=== PATIENT | female | born 1955 | race African-American/Black ===

== ENCOUNTER 2021-05-27 18:00 | Inpatient (IN) ==
[2021-05-27] MEDS ORDERED: ONDANSETRON 4 MG/2 ML VIAL IV STA (19:00)
[2021-05-27] MEDS ORDERED: cefTRIAXone 1,000 MG in SODIUM CHLORIDE 0.9% 100 ML IV STA (19:00)
[2021-05-27 20:11] LABS: Basophils % 0.3 % (0.0-0.8); Eosinophils # 0.1 10*3/uL (0.0-0.87); Eosinophils % 0.8 % (0.00-10.9); Hematocrit 30.3 VOL% (35.7-47.0); Hemoglobin 8.1 GM/DL (12.0-16.0); Immature Granulocytes % 1.2 %; Immature Granulocytes Absolute 0.12 #; Lymphocytes % 9.8 % (21.3-54.2); Mean Corpuscular HGB Conc 26.7 GM/DL (32-36); Mean Corpuscular Volume 84.6 FL (87-102); Mean Platelet Volume 10.9 FL (9.6-12.0); Monocytes % 7.1 % (1.7-12.7); NRBC # 0.02 10*3/uL; Neutrophils % 80.8 % (38.7-73.9); Platelet Count 215 T/CUMM (130-400); Red Blood Count 3.58 MC/CUMM (3.8-5.5); Red Cell Distribution Width 18.5 % (9.3-17.3); White Blood Count 9.8 T/CUMM (4-12)
[2021-05-27 20:15] LABS: Alanine Aminotransferase 14 U/L (13-56); Albumin 3.2 G/DL (3.4-5.0); Alkaline Phosphatase 62 U/L (45-117); Amylase 33 U/L (25-115); Aspartate Amino Transferase 12 U/L (0-37); Blood Urea Nitrogen 51 MG/DL (7-18); Calcium 9.9 MG/DL (8.5-10.1); Carbon Dioxide 31 MMOL/L (21-32); Estimated Glom Filtration Rate 84 ML/MIN; Glucose 170 MG/DL (74-106); Potassium 5.1 MMOL/L (3.5-5.1); Sodium 136 MMOL/L (136-145); Total Protein 7.9 G/DL (6.4-8.2)
[2021-05-27 20:45] LABS: Bacteria,Urine Occasional /HPF (Few); Bilirubin,Urine Negative (Negative); Blood, Urine Negative (Negative); Glucose,Urine (UA) Negative (Negative); Hyaline Casts,Urine 21 /LPF (0-3); Ketones,Urine Negative (Negative); Mucus,Urine Occasional /LPF (Occasional); Nitrite,Urine Negative (Negative); Protein,Urine Negative; RBC,Urine 2 /HPF (0-4); Squamous Epithelial Cell,Urine Occasional /HPF (0-10); Urine Appearance Slightly Hazy (Clear); Urine Color Yellow (Yellow); Urine Specific Gravity 1.011 (1.001-1.035); Urine Urobilinogen < 2.0 EU/DL (<2.0)
[2021-05-27] MEDS ORDERED: MEROPENEM 1,000 MG in SODIUM CHLORIDE 0.9% 100 ML IV ONE (21:01)
[2021-05-27] MEDS ORDERED: PIPERACILLIN/TAZOBACTAM 3,375 MG in SODIUM CHLORIDE 0.9% 100 ML IV STA (21:03)
[2021-05-27] MEDS ORDERED: guaiFENesin/DM ER 600-30 MG TABLET PO PRN (22:04)
[2021-05-27] MEDS ORDERED: ONDANSETRON 4 MG/2 ML VIAL IV PRN (22:04)
[2021-05-27] MEDS ORDERED: NICOTINE 21 MG/24 HR PATCH TRANSDERM PRN (22:04)
[2021-05-27] MEDS ORDERED: ZALEPLON 5 MG CAPSULE PO PRN (22:04)
[2021-05-27] MEDS ORDERED: DEXTROSE 10% 250 ML BAG IV PRN (22:04)
[2021-05-27] MEDS ORDERED: ACETAMINOPHEN 325 MG TABLET PO PRN (22:04)
[2021-05-27] MEDS ORDERED: DOCUSATE SODIUM 100 MG CAPSULE PO PRN (22:04)
[2021-05-27] MEDS ORDERED: diphenhydrAMINE CAP 25 MG CAPSULE PO PRN (22:04)
[2021-05-27] MEDS ORDERED: DEXTROSE 50% 25 GM/50 ML VIAL IV PRN (22:04)
[2021-05-27] MEDS ORDERED: GLUCAGON 1 MG VIAL IM PRN ×2 (22:04)
[2021-05-27] MEDS ORDERED: LEVOFLOXACIN INJ 750 MG/150 ML PREMIX IV SCH (22:30)
[2021-05-27 23:11] LABS: Anisocytosis 1+; Hypochromia 1+; Polychromasia 1+
[2021-05-27 23:13] LABS: Platelet Estimate Adequate
[2021-05-27] MEDS: FUROSEMIDE 40 MG/4 ML VIAL IV SCH (23:24)
[2021-05-27] MEDS: VANCOMYCIN INJ 2,000 MG in SODIUM CHLORIDE 0.9% 500 ML IV SCH (23:26)
[2021-05-27 23:28] LABS: ABG Base Excess -1.8 MMOL/L (-2.5-2.5); ABG HCO3 22.7 MMOL/L (20-26); ABG Oxygen Saturation 78.6 % (95-100); ABG PO2 65.7 MM HG (80-95); ABG TCO2 35.9 MMOL/L (23-27); Allen Test Positive
[2021-05-27 23:33] LABS: ABG PH 6.941 (7.35-7.45)
[2021-05-27] MEDS ORDERED: ENOXAPARIN 100 MG/ML SYRINGE SUBCUT STA (23:56)
[2021-05-27] MEDS ORDERED: ENOXAPARIN 120 MG/0.8 ML SYRINGE SUBCUT STA (23:58)
[2021-05-28] MEDS: ALBUTEROL/IPRATROPIUM 3 ML NEB RESP TX SCH ×4 (00:10→19:45)
[2021-05-28] MEDS ORDERED: ROCURONIUM 100 MG/10 ML VIAL IV STA (01:10)
[2021-05-28] MEDS ORDERED: ETOMIDATE 20 MG/10 ML VIAL IV STA (01:11)
[2021-05-28] MEDS: hydrALAZINE 20 MG/1 ML VIAL IV PRN ×3 (01:49→13:24)
[2021-05-28 02:16] LABS: ABG Base Excess 1.8 MMOL/L (-2.5-2.5); ABG Oxygen Saturation 97.1 % (95-100); ABG PO2 89.6 MM HG (80-95); ABG TCO2 30.3 MMOL/L (23-27)
[2021-05-28 02:20] LABS: ABG PCO2 82.4 MM HG (35-48); ABG PH 7.196 (7.35-7.45)
[2021-05-28 03:58] VITALS: BP 166/89
[2021-05-28] MEDS: PIPERACILLIN/TAZOBACTAM 3,375 MG in SODIUM CHLORIDE 0.9% 100 ML IV SCH ×3 (05:48→19:35)
[2021-05-28 06:07] LABS: Basophils % 0.3 % (0.0-0.8); NRBC # 0.03 10*3/uL; Red Cell Distribution Width 18.3 % (9.3-17.3)
[2021-05-28 06:32] LABS: Eosinophils % 0.1 % (0.00-10.9); Hemoglobin 8.1 GM/DL (12.0-16.0); Immature Granulocytes % 1.1 %; Immature Granulocytes Absolute 0.08 #; Lymphocytes # 0.7 10*3/uL (1.4-4.0); Lymphocytes % 9.6 % (21.3-54.2); Mean Corpuscular HGB Conc 26.9 GM/DL (32-36); Mean Corpuscular Volume 83.1 FL (87-102); Monocytes % 4.6 % (1.7-12.7); Neutrophils % 84.3 % (38.7-73.9); Platelet Count 222 T/CUMM (130-400); Red Blood Count 3.62 MC/CUMM (3.8-5.5); White Blood Count 7.1 T/CUMM (4-12)
[2021-05-28 06:38] LABS: Hematocrit 30.1 VOL% (35.7-47.0)
[2021-05-28 07:05] LABS: Calcium 10.1 MG/DL (8.5-10.1); Osmolality,Calculated 291.8 MOS/KG (273-304); Potassium 5.1 MMOL/L (3.5-5.1)
[2021-05-28] MEDS: LOSARTAN 50 MG TABLET PO SCH (08:30)
[2021-05-28] MEDS: DOCUSATE SODIUM 100 MG CAPSULE PO SCH ×2 (08:30→20:01)
[2021-05-28] MEDS: GABAPENTIN 300 MG CAPSULE PO SCH ×3 (08:30→20:03)
[2021-05-28] MEDS: amLODIPine 5 MG TABLET PO SCH (08:30)
[2021-05-28] MEDS: PANTOPRAZOLE 40 MG VIAL IV SCH (08:30)
[2021-05-28] MEDS: INSULIN NPH 100 UNIT/ML SUBCUT SCH ×2 (08:30→20:54)
[2021-05-28] MEDS ORDERED: PANTOPRAZOLE 40 MG TABLET PO SCH (09:00)
[2021-05-28] MEDS ORDERED: HEPARIN 5,000 UNIT/1 ML VIAL SUBCUT SCH (09:00)
[2021-05-28] MEDS: methylPREDNISolone SOD SUC 40 MG/1 ML VIAL IV SCH ×2 (09:56→20:02)
[2021-05-28] MEDS: FUROSEMIDE 40 MG/4 ML VIAL IV SCH ×2 (10:39→22:59)
[2021-05-28] MEDS: VANCOMYCIN INJ 2,000 MG in SODIUM CHLORIDE 0.9% 500 ML IV SCH ×2 (10:59→23:23)
[2021-05-28] MEDS: INSULIN LISPRO 100 UNIT/ML SUBCUT SCH ×4 (11:06→21:40)
[2021-05-28] MEDS: APIXABAN 5 MG TABLET PER TUBE SCH ×2 (11:23→20:01)
[2021-05-28] MEDS: ATORVASTATIN 10 MG TABLET PO SCH (20:06)
[2021-05-29] MEDS: hydrALAZINE 20 MG/1 ML VIAL IV PRN ×2 (00:29→11:12)
[2021-05-29] MEDS: ALBUTEROL/IPRATROPIUM 3 ML NEB RESP TX SCH ×4 (01:04→19:01)
[2021-05-29] MEDS: PIPERACILLIN/TAZOBACTAM 3,375 MG in SODIUM CHLORIDE 0.9% 100 ML IV SCH ×3 (03:32→20:04)
[2021-05-29 03:33] LABS: ABG Base Excess 8.8 MMOL/L (-2.5-2.5); ABG HCO3 33.4 MMOL/L (20-26); ABG Oxygen Saturation 99.4 % (95-100); ABG PO2 214.5 MM HG (80-95); ABG TCO2 34.9 MMOL/L (23-27)
[2021-05-29 05:03] LABS: Albumin 2.3 G/DL (3.4-5.0); Bilirubin,Total 0.8 MG/DL (0.20-1.00); Osmolality,Calculated 303.1 MOS/KG (273-304); Potassium 4.4 MMOL/L (3.5-5.1); Total Protein 6.3 G/DL (6.4-8.2)
[2021-05-29 05:11] LABS: Hemoglobin 8.3 GM/DL (12.0-16.0); Immature Granulocytes % 0.6 %; Immature Granulocytes Absolute 0.03 #; Lymphocytes # 0.4 10*3/uL (1.4-4.0); Lymphocytes % 7.5 % (21.3-54.2); Mean Corpuscular HGB Conc 28.5 GM/DL (32-36); Mean Platelet Volume 11.2 FL (9.6-12.0); Monocytes % 2.7 % (1.7-12.7); Neutrophils % 89.2 % (38.7-73.9); Platelet Count 203 T/CUMM (130-400); Red Blood Count 3.73 MC/CUMM (3.8-5.5); Red Cell Distribution Width 18.4 % (9.3-17.3); White Blood Count 5.1 T/CUMM (4-12)
[2021-05-29 05:16] LABS: Hematocrit 29.1 VOL% (35.7-47.0)
[2021-05-29 05:33] LABS: Hypochromia 2+; Microcytosis 1+; Tear Drop Cells Slight
[2021-05-29 05:34] LABS: Ovalocytes Few; Platelet Estimate Normal
[2021-05-29] MEDS: methylPREDNISolone SOD SUC 40 MG/1 ML VIAL IV SCH ×2 (08:56→20:40)
[2021-05-29] MEDS: PANTOPRAZOLE 40 MG VIAL IV SCH (09:00)
[2021-05-29] MEDS: GABAPENTIN 300 MG CAPSULE PO SCH ×3 (09:04→20:40)
[2021-05-29] MEDS: APIXABAN 5 MG TABLET PER TUBE SCH ×2 (09:04→20:40)
[2021-05-29] MEDS: DOCUSATE SODIUM 100 MG CAPSULE PO SCH ×2 (09:05→20:40)
[2021-05-29] MEDS: amLODIPine 5 MG TABLET PO SCH (09:05)
[2021-05-29] MEDS: LOSARTAN 50 MG TABLET PO SCH (09:05)
[2021-05-29] MEDS: INSULIN NPH 100 UNIT/ML SUBCUT SCH ×2 (09:06→20:55)
[2021-05-29] MEDS: INSULIN LISPRO 100 UNIT/ML SUBCUT SCH ×3 (09:07→16:28)
[2021-05-29] MEDS: FUROSEMIDE 40 MG/4 ML VIAL IV SCH ×2 (11:03→22:23)
[2021-05-29] MEDS: VANCOMYCIN INJ 2,000 MG in SODIUM CHLORIDE 0.9% 500 ML IV SCH ×2 (12:25→23:02)
[2021-05-29] MEDS: ATORVASTATIN 10 MG TABLET PO SCH (20:40)
[2021-05-30] MEDS: ALBUTEROL/IPRATROPIUM 3 ML NEB RESP TX SCH ×4 (00:05→19:58)
[2021-05-30] MEDS: hydrALAZINE 20 MG/1 ML VIAL IV PRN ×3 (00:38→23:23)
[2021-05-30] MEDS: PIPERACILLIN/TAZOBACTAM 3,375 MG in SODIUM CHLORIDE 0.9% 100 ML IV SCH ×3 (04:00→20:38)
[2021-05-30 04:47] LABS: Calcium 9.2 MG/DL (8.5-10.1); Osmolality,Calculated 304.3 MOS/KG (273-304); Potassium 4.3 MMOL/L (3.5-5.1)
[2021-05-30 05:04] LABS: Hemoglobin 8.5 GM/DL (12.0-16.0); Immature Granulocytes % 0.7 %; Immature Granulocytes Absolute 0.03 #; Lymphocytes # 0.4 10*3/uL (1.4-4.0); Lymphocytes % 9.5 % (21.3-54.2); Mean Corpuscular HGB Conc 28.4 GM/DL (32-36); Mean Corpuscular Volume 77.3 FL (87-102); Mean Platelet Volume 11.3 FL (9.6-12.0); Monocytes % 7.8 % (1.7-12.7); NRBC # 0.03 10*3/uL; Platelet Count 189 T/CUMM (130-400); Red Blood Count 3.87 MC/CUMM (3.8-5.5); Red Cell Distribution Width 18.3 % (9.3-17.3); White Blood Count 4.6 T/CUMM (4-12)
[2021-05-30 05:06] LABS: Hematocrit 29.9 VOL% (35.7-47.0)
[2021-05-30] MEDS: INSULIN LISPRO 100 UNIT/ML SUBCUT SCH ×5 (05:52→23:25)
[2021-05-30 08:34] LABS: ABG Base Excess 11.9 MMOL/L (-2.5-2.5); ABG HCO3 35.4 MMOL/L (20-26); ABG Oxygen Saturation 94.1 % (95-100); ABG PCO2 41.7 MM HG (35-48); ABG PH 7.547 (7.35-7.45); ABG PO2 67.2 MM HG (80-95); ABG TCO2 36.7 MMOL/L (23-27)
[2021-05-30] MEDS: amLODIPine 5 MG TABLET PO SCH (09:05)
[2021-05-30] MEDS: APIXABAN 5 MG TABLET PER TUBE SCH ×2 (09:05→20:39)
[2021-05-30] MEDS: LOSARTAN 50 MG TABLET PO SCH (09:05)
[2021-05-30] MEDS: INSULIN NPH 100 UNIT/ML SUBCUT SCH ×2 (09:05→20:40)
[2021-05-30] MEDS: DOCUSATE SODIUM 100 MG CAPSULE PO SCH ×2 (09:05→20:40)
[2021-05-30] MEDS: GABAPENTIN 300 MG CAPSULE PO SCH ×3 (09:05→20:39)
[2021-05-30] MEDS: PANTOPRAZOLE 40 MG VIAL IV SCH (09:05)
[2021-05-30] MEDS: methylPREDNISolone SOD SUC 40 MG/1 ML VIAL IV SCH ×2 (09:05→20:39)
[2021-05-30] MEDS: ATORVASTATIN 10 MG TABLET PO SCH (20:39)
[2021-05-30] MEDS: VANCOMYCIN INJ 2,000 MG in SODIUM CHLORIDE 0.9% 500 ML IV SCH (23:24)
[2021-05-31] MEDS: ALBUTEROL/IPRATROPIUM 3 ML NEB RESP TX SCH ×4 (00:24→19:11)
[2021-05-31] MEDS: PIPERACILLIN/TAZOBACTAM 3,375 MG in SODIUM CHLORIDE 0.9% 100 ML IV SCH ×3 (04:05→20:26)
[2021-05-31 04:16] LABS: Calcium 9.4 MG/DL (8.5-10.1); Hemoglobin 8.7 GM/DL (12.0-16.0); Immature Granulocytes % 0.6 %; Immature Granulocytes Absolute 0.03 #; Lymphocytes # 0.6 10*3/uL (1.4-4.0); Lymphocytes % 10.9 % (21.3-54.2); Mean Corpuscular HGB Conc 28.2 GM/DL (32-36); Mean Corpuscular Volume 78.6 FL (87-102); Mean Platelet Volume 10.6 FL (9.6-12.0); Monocytes % 8.9 % (1.7-12.7); Neutrophils % 79.6 % (38.7-73.9); Osmolality,Calculated 298.1 MOS/KG (273-304); Platelet Count 209 T/CUMM (130-400); Potassium 4.1 MMOL/L (3.5-5.1); Red Blood Count 3.92 MC/CUMM (3.8-5.5); Red Cell Distribution Width 18.3 % (9.3-17.3); White Blood Count 5.4 T/CUMM (4-12)
[2021-05-31 04:18] LABS: Hematocrit 30.8 VOL% (35.7-47.0)
[2021-05-31 04:38] LABS: ABG Base Excess 8.2 MMOL/L (-2.5-2.5); ABG Oxygen Saturation 99.2 % (95-100); ABG PCO2 43.3 MM HG (35-48); ABG PH 7.484 (7.35-7.45)
[2021-05-31] MEDS: INSULIN LISPRO 100 UNIT/ML SUBCUT SCH ×4 (05:46→23:55)
[2021-05-31] MEDS: hydrALAZINE 20 MG/1 ML VIAL IV PRN ×3 (06:05→20:06)
[2021-05-31] MEDS ORDERED: INFLUENZA VIRUS VACCINE 0.5 ML SYRINGE IM ONE (09:00)
[2021-05-31] MEDS: APIXABAN 5 MG TABLET PER TUBE SCH ×2 (09:59→20:22)
[2021-05-31] MEDS: PANTOPRAZOLE 40 MG VIAL IV SCH (09:59)
[2021-05-31] MEDS: methylPREDNISolone SOD SUC 40 MG/1 ML VIAL IV SCH ×2 (09:59→20:24)
[2021-05-31] MEDS: GABAPENTIN 300 MG CAPSULE PO SCH ×3 (09:59→20:23)
[2021-05-31] MEDS: amLODIPine 5 MG TABLET PO SCH (10:00)
[2021-05-31] MEDS: DOCUSATE SODIUM 100 MG CAPSULE PO SCH ×2 (10:00→20:22)
[2021-05-31] MEDS: LOSARTAN 50 MG TABLET PO SCH (10:00)
[2021-05-31] MEDS: INSULIN NPH 100 UNIT/ML SUBCUT SCH ×2 (10:00→20:25)
[2021-05-31] MEDS ORDERED: DEXTROSE 5% 1,000 ML IV SCH (14:00)
[2021-05-31] MEDS: ATORVASTATIN 10 MG TABLET PO SCH (20:22)
[2021-05-31] MEDS ORDERED: DEXAMETHASONE 0.5 MG TABLET PO ONE (23:00)
[2021-05-31] MEDS: VANCOMYCIN INJ 2,000 MG in SODIUM CHLORIDE 0.9% 500 ML IV SCH (23:53)
[2021-06-01] MEDS: ALBUTEROL/IPRATROPIUM 3 ML NEB RESP TX SCH ×4 (00:51→19:08)
[2021-06-01 03:53] LABS: ABG Base Excess 5.3 MMOL/L (-2.5-2.5); ABG HCO3 29.2 MMOL/L (20-26); ABG Oxygen Saturation 98.9 % (95-100); ABG PCO2 45.8 MM HG (35-48); ABG TCO2 27.3 MMOL/L (23-27)
[2021-06-01 04:12] LABS: Calcium 9.3 MG/DL (8.5-10.1); Osmolality,Calculated 293.3 MOS/KG (273-304); Potassium 3.9 MMOL/L (3.5-5.1)
[2021-06-01] MEDS: PIPERACILLIN/TAZOBACTAM 3,375 MG in SODIUM CHLORIDE 0.9% 100 ML IV SCH ×3 (04:17→20:25)
[2021-06-01 04:20] LABS: Hematocrit 31.2 VOL% (35.7-47.0); Immature Granulocytes % 0.6 %; Immature Granulocytes Absolute 0.04 #; Lymphocytes # 0.6 10*3/uL (1.4-4.0); Lymphocytes % 9.7 % (21.3-54.2); Mean Corpuscular HGB Conc 27.6 GM/DL (32-36); Mean Platelet Volume 11.1 FL (9.6-12.0); Monocytes % 6.9 % (1.7-12.7); Neutrophils % 82.8 % (38.7-73.9); Platelet Count 198 T/CUMM (130-400); Red Cell Distribution Width 18.1 % (9.3-17.3); White Blood Count 6.5 T/CUMM (4-12)
[2021-06-01 04:36] LABS: Hemoglobin 8.6 GM/DL (12.0-16.0)
[2021-06-01 04:46] LABS: Hypochromia 2+; Ovalocytes Few
[2021-06-01 04:47] LABS: Microcytosis 1+; Platelet Estimate Adequate; Tear Drop Cells Slight
[2021-06-01] MEDS: INSULIN LISPRO 100 UNIT/ML SUBCUT SCH ×4 (06:45→23:40)
[2021-06-01] MEDS: methylPREDNISolone SOD SUC 40 MG/1 ML VIAL IV SCH ×2 (09:15→20:26)
[2021-06-01] MEDS: INSULIN NPH 100 UNIT/ML SUBCUT SCH ×2 (09:15→20:27)
[2021-06-01] MEDS: APIXABAN 5 MG TABLET PER TUBE SCH ×2 (09:16→20:26)
[2021-06-01] MEDS: PANTOPRAZOLE 40 MG VIAL IV SCH (09:16)
[2021-06-01] MEDS: DOCUSATE SODIUM 100 MG CAPSULE PO SCH ×2 (09:16→20:27)
[2021-06-01] MEDS: LOSARTAN 50 MG TABLET PO SCH (09:16)
[2021-06-01] MEDS: GABAPENTIN 300 MG CAPSULE PO SCH ×3 (09:16→20:25)
[2021-06-01] MEDS: amLODIPine 5 MG TABLET PO SCH (09:16)
[2021-06-01] MEDS: carvediloL 25 MG TABLET PO SCH (16:05)
[2021-06-01] MEDS: ATORVASTATIN 10 MG TABLET PO SCH (20:25)
[2021-06-01] MEDS: hydrALAZINE 20 MG/1 ML VIAL IV PRN (22:44)
[2021-06-01] MEDS: VANCOMYCIN INJ 2,000 MG in SODIUM CHLORIDE 0.9% 500 ML IV SCH (23:41)
[2021-06-02] MEDS: ALBUTEROL/IPRATROPIUM 3 ML NEB RESP TX SCH ×4 (00:44→19:58)
[2021-06-02] MEDS: PIPERACILLIN/TAZOBACTAM 3,375 MG in SODIUM CHLORIDE 0.9% 100 ML IV SCH ×3 (03:35→20:04)
[2021-06-02 04:15] LABS: Calcium 8.8 MG/DL (8.5-10.1); Potassium 4.2 MMOL/L (3.5-5.1)
[2021-06-02 04:41] LABS: Eosinophils % 0.1 % (0.00-10.9); Hematocrit 34.8 VOL% (35.7-47.0); Hemoglobin 9.8 GM/DL (12.0-16.0); Immature Granulocytes % 0.3 %; Immature Granulocytes Absolute 0.03 #; Lymphocytes # 0.7 10*3/uL (1.4-4.0); Lymphocytes % 7.2 % (21.3-54.2); Mean Corpuscular HGB Conc 28.2 GM/DL (32-36); Mean Corpuscular Volume 79.1 FL (87-102); Monocytes % 5.1 % (1.7-12.7); Neutrophils % 87.3 % (38.7-73.9); Platelet Count 228 T/CUMM (130-400); Red Cell Distribution Width 17.8 % (9.3-17.3)
[2021-06-02 04:53] LABS: ABG Base Excess 4.2 MMOL/L (-2.5-2.5); ABG HCO3 27.8 MMOL/L (20-26); ABG Oxygen Saturation 73.6 % (95-100); ABG PCO2 47.7 MM HG (35-48); ABG PH 7.402 (7.35-7.45); ABG PO2 44.5 MM HG (80-95); ABG TCO2 27.4 MMOL/L (23-27)
[2021-06-02 05:18] LABS: Anisocytosis 1+; Hypochromia 2+; Microcytosis 1+; Ovalocytes Slight; Platelet Estimate Normal; Tear Drop Cells Slight
[2021-06-02] MEDS: INSULIN LISPRO 100 UNIT/ML SUBCUT SCH ×3 (06:25→17:30)
[2021-06-02 07:18] LABS: ABG Base Excess 3.9 MMOL/L (-2.5-2.5); ABG HCO3 28.6 MMOL/L (20-26); ABG Oxygen Saturation 98.4 % (95-100); ABG PH 7.431 (7.35-7.45); ABG PO2 125.3 MM HG (80-95)
[2021-06-02] MEDS: PANTOPRAZOLE 40 MG VIAL IV SCH (09:03)
[2021-06-02] MEDS: INSULIN NPH 100 UNIT/ML SUBCUT SCH ×2 (09:03→20:18)
[2021-06-02] MEDS: methylPREDNISolone SOD SUC 40 MG/1 ML VIAL IV SCH ×2 (09:03→20:17)
[2021-06-02] MEDS: amLODIPine 5 MG TABLET PO SCH (09:04)
[2021-06-02] MEDS: DOCUSATE SODIUM 100 MG CAPSULE PO SCH ×2 (09:04→20:17)
[2021-06-02] MEDS: APIXABAN 5 MG TABLET PER TUBE SCH ×2 (09:04→20:17)
[2021-06-02] MEDS: LOSARTAN 50 MG TABLET PO SCH (09:04)
[2021-06-02] MEDS: carvediloL 25 MG TABLET PO SCH ×2 (09:04→17:29)
[2021-06-02] MEDS: GABAPENTIN 300 MG CAPSULE PO SCH ×3 (09:04→20:17)
[2021-06-02] MEDS: FUROSEMIDE 40 MG/4 ML VIAL IV SCH (15:39)
[2021-06-02] MEDS: ATORVASTATIN 10 MG TABLET PO SCH (20:17)
[2021-06-02] MEDS: hydrALAZINE 20 MG/1 ML VIAL IV PRN (22:05)
[2021-06-03] MEDS: ALBUTEROL/IPRATROPIUM 3 ML NEB RESP TX SCH ×4 (00:42→19:25)
[2021-06-03] MEDS: PIPERACILLIN/TAZOBACTAM 3,375 MG in SODIUM CHLORIDE 0.9% 100 ML IV SCH ×3 (03:45→19:38)
[2021-06-03 04:24] LABS: Calcium 8.8 MG/DL (8.5-10.1); Osmolality,Calculated 296.1 MOS/KG (273-304); Potassium 3.9 MMOL/L (3.5-5.1)
[2021-06-03 04:39] LABS: Basophils % 0.1 % (0.0-0.8); Eosinophils % 0.1 % (0.00-10.9); Hematocrit 33.4 VOL% (35.7-47.0); Hemoglobin 9.4 GM/DL (12.0-16.0); Immature Granulocytes % 0.3 %; Immature Granulocytes Absolute 0.03 #; Lymphocytes # 0.8 10*3/uL (1.4-4.0); Lymphocytes % 8.3 % (21.3-54.2); Mean Corpuscular HGB Conc 28.1 GM/DL (32-36); Mean Corpuscular Volume 79.1 FL (87-102); Monocytes % 5.1 % (1.7-12.7); Neutrophils % 86.1 % (38.7-73.9); Platelet Count 230 T/CUMM (130-400); Red Blood Count 4.22 MC/CUMM (3.8-5.5); Red Cell Distribution Width 18.1 % (9.3-17.3); White Blood Count 9.1 T/CUMM (4-12)
[2021-06-03 04:40] LABS: ABG Base Excess 3.6 MMOL/L (-2.5-2.5); ABG HCO3 27.7 MMOL/L (20-26); ABG Oxygen Saturation 98.1 % (95-100); ABG PCO2 43.2 MM HG (35-48); ABG PH 7.426 (7.35-7.45)
[2021-06-03 04:50] LABS: Hypochromia 2+; Microcytosis 1+; Ovalocytes Few; Tear Drop Cells Slight
[2021-06-03 04:51] LABS: Platelet Estimate Normal
[2021-06-03] MEDS: INSULIN LISPRO 100 UNIT/ML SUBCUT SCH ×5 (05:33→23:21)
[2021-06-03] MEDS ORDERED: VANCOMYCIN INJ 2,000 MG in SODIUM CHLORIDE 0.9% 500 ML IV SCH (06:00)
[2021-06-03] MEDS: LOSARTAN 50 MG TABLET PO SCH (09:28)
[2021-06-03] MEDS: APIXABAN 5 MG TABLET PER TUBE SCH ×2 (09:28→20:00)
[2021-06-03] MEDS: amLODIPine 5 MG TABLET PO SCH (09:28)
[2021-06-03] MEDS: carvediloL 25 MG TABLET PO SCH ×2 (09:28→18:49)
[2021-06-03] MEDS: GABAPENTIN 300 MG CAPSULE PO SCH ×3 (09:28→20:00)
[2021-06-03] MEDS: DOCUSATE SODIUM 100 MG CAPSULE PO SCH ×2 (09:31→20:01)
[2021-06-03] MEDS: INSULIN NPH 100 UNIT/ML SUBCUT SCH ×2 (09:32→20:01)
[2021-06-03] MEDS: methylPREDNISolone SOD SUC 40 MG/1 ML VIAL IV SCH ×2 (09:33→15:30)
[2021-06-03] MEDS: FUROSEMIDE 40 MG/4 ML VIAL IV SCH (09:34)
[2021-06-03] MEDS: PANTOPRAZOLE 40 MG VIAL IV SCH (09:37)
[2021-06-03] MEDS: ATORVASTATIN 10 MG TABLET PO SCH (20:00)
[2021-06-03] MEDS: hydrALAZINE 20 MG/1 ML VIAL IV PRN (21:05)
[2021-06-04] MEDS: ALBUTEROL/IPRATROPIUM 3 ML NEB RESP TX SCH ×4 (00:42→20:20)
[2021-06-04] MEDS: methylPREDNISolone SOD SUC 40 MG/1 ML VIAL IV SCH ×2 (02:48→15:30)
[2021-06-04 03:51] LABS: ABG Base Excess 3.8 MMOL/L (-2.5-2.5); ABG HCO3 27.9 MMOL/L (20-26); ABG Oxygen Saturation 98.3 % (95-100); ABG PCO2 40.2 MM HG (35-48); ABG PH 7.451 (7.35-7.45); ABG TCO2 25.7 MMOL/L (23-27)
[2021-06-04] MEDS: PIPERACILLIN/TAZOBACTAM 3,375 MG in SODIUM CHLORIDE 0.9% 100 ML IV SCH ×2 (04:06→12:45)
[2021-06-04 04:44] LABS: Calcium 9.2 MG/DL (8.5-10.1); Osmolality,Calculated 292.4 MOS/KG (273-304); Potassium 3.8 MMOL/L (3.5-5.1)
[2021-06-04 04:58] LABS: Hemoglobin 9.1 GM/DL (12.0-16.0); Immature Granulocytes % 0.4 %; Immature Granulocytes Absolute 0.03 #; Lymphocytes # 1.2 10*3/uL (1.4-4.0); Lymphocytes % 13.5 % (21.3-54.2); Mean Corpuscular HGB Conc 28.2 GM/DL (32-36); Mean Corpuscular Volume 79.2 FL (87-102); Monocytes % 9.3 % (1.7-12.7); Neutrophils % 76.8 % (38.7-73.9); Platelet Count 198 T/CUMM (130-400); Red Blood Count 4.08 MC/CUMM (3.8-5.5); White Blood Count 8.5 T/CUMM (4-12)
[2021-06-04 05:05] LABS: % Iron Saturation 11.7 % (18-50); Ferritin 114.2 ng/mL (8-252)
[2021-06-04 05:21] LABS: Hematocrit 32.3 VOL% (35.7-47.0)
[2021-06-04 05:27] LABS: Hypochromia 2+
[2021-06-04 05:28] LABS: Microcytosis 1+; Ovalocytes Slight
[2021-06-04 05:29] LABS: Platelet Estimate Adequate
[2021-06-04] MEDS: INSULIN LISPRO 100 UNIT/ML SUBCUT SCH ×4 (06:48→20:24)
[2021-06-04] MEDS: DOCUSATE SODIUM 100 MG CAPSULE PO SCH ×2 (09:13→20:22)
[2021-06-04] MEDS: LOSARTAN 50 MG TABLET PO SCH (09:14)
[2021-06-04] MEDS: carvediloL 25 MG TABLET PO SCH ×2 (09:14→17:30)
[2021-06-04] MEDS: APIXABAN 5 MG TABLET PER TUBE SCH ×2 (09:14→20:22)
[2021-06-04] MEDS: amLODIPine 5 MG TABLET PO SCH (09:14)
[2021-06-04] MEDS: GABAPENTIN 300 MG CAPSULE PO SCH ×3 (09:14→20:21)
[2021-06-04] MEDS: INSULIN NPH 100 UNIT/ML SUBCUT SCH ×2 (09:17→20:21)
[2021-06-04] MEDS: FUROSEMIDE 40 MG/4 ML VIAL IV SCH (09:18)
[2021-06-04] MEDS: PANTOPRAZOLE 40 MG VIAL IV SCH (09:20)
[2021-06-04] MEDS: ATORVASTATIN 10 MG TABLET PO SCH (20:22)
[2021-06-05] MEDS: ALBUTEROL/IPRATROPIUM 3 ML NEB RESP TX SCH ×2 (00:23→08:40)
[2021-06-05] MEDS: methylPREDNISolone SOD SUC 40 MG/1 ML VIAL IV SCH (02:32)
[2021-06-05 04:11] LABS: Calcium 8.8 MG/DL (8.5-10.1); Potassium 4.1 MMOL/L (3.5-5.1)
[2021-06-05 05:01] LABS: Eosinophils % 0.2 % (0.00-10.9); Hematocrit 31.7 VOL% (35.7-47.0); Immature Granulocytes % 0.5 %; Immature Granulocytes Absolute 0.04 #; Lymphocytes # 1.2 10*3/uL (1.4-4.0); Mean Corpuscular HGB Conc 27.1 GM/DL (32-36); Mean Corpuscular Volume 81.9 FL (87-102); Monocytes % 12.2 % (1.7-12.7); Neutrophils % 72.1 % (38.7-73.9); Platelet Count 181 T/CUMM (130-400); Red Blood Count 3.87 MC/CUMM (3.8-5.5); Red Cell Distribution Width 18.3 % (9.3-17.3); White Blood Count 8.2 T/CUMM (4-12)
[2021-06-05 05:08] LABS: Hemoglobin 8.6 GM/DL (12.0-16.0)
[2021-06-05] MEDS ORDERED: INSULIN NPH 100 UNIT/ML SUBCUT SCH (09:00)
[2021-06-05] MEDS ORDERED: PANTOPRAZOLE 40 MG TABLET PO SCH (09:00)
[2021-06-05] MEDS: amLODIPine 5 MG TABLET PO SCH (09:46)
[2021-06-05] MEDS: LOSARTAN 50 MG TABLET PO SCH (09:46)
[2021-06-05] MEDS: GABAPENTIN 300 MG CAPSULE PO SCH (09:46)
[2021-06-05] MEDS: APIXABAN 5 MG TABLET PER TUBE SCH (09:46)
[2021-06-05] MEDS: carvediloL 25 MG TABLET PO SCH (09:46)
[2021-06-05] MEDS: DOCUSATE SODIUM 100 MG CAPSULE PO SCH (09:47)
[2021-06-05] MEDS: INSULIN LISPRO 100 UNIT/ML SUBCUT SCH (10:23)
== END 2021-06-05 12:35 | DRG 207 ==
LOC: N.ED 18:00 → N.EDINP 05-28 04:01 → SUATTDRO 05-28 04:01 → N.CC 05-28 04:54
PROVIDERS: ADMIT Internal Medicine; ATTEND Family Medicine